=== PATIENT | male | born 1965 | race Caucasian/White ===

== ENCOUNTER 2025-01-10 12:08 | Inpatient (IN) | payer OTHER ==
[2025-01-10 13:00] LABS: Hematocrit 21.1 % (42.0-52.0); Hemoglobin 5.2 g/dL (14.0-18.0); Mean Corpuscular Hemoglobin 17.2 pg (27.0-31.0); Mean Corpuscular Volume 69.6 fL (78.0-98.0); Platelet Count 102 10x3/uL (130-400); Red Blood Cell (RBC) Count 3.03 mill/uL (4.70-6.10); White Blood Cell (WBC) Count 3.93 10x3/uL (4.8-10.8)
[2025-01-10 13:04] LABS: INR-International Normal Ratio 1.1; Prothrombin Time 14.5 sec (12.0-14.7)
[2025-01-10] MEDS ORDERED: Iopamidol-370 76% 500 ML MDV (1 ML CHARGE) ONE (13:09)
[2025-01-10 13:10] LABS: ALT (SGPT) 18 U/L (Less than 45); AST (SGOT) 30 U/L (11-34); Albumin 3.7 g/dL (3.1-4.5); Alkaline Phosphatase 121 U/L (40-110); Anion Gap 13 mmol/L (10-20); BUN (Urea Nitrogen) 14 mg/dL (8.4-25.7); Bilirubin, Total 1.4 mg/dL (0.3-1.2); Calc. Creatinine Clearance 0 mL/min (70-130); Calcium 8.9 mg/dL (7.8-10.44); Carbon Dioxide 22 mmol/L (23-31); Chloride 106 mmol/L (98-107); Globulin 3.2 g/dL (2.4-3.5); Glucose 199 mg/dL (80-115); Potassium 3.9 mmol/L (3.5-5.1); Sodium 137 mmol/L (136-145)
[2025-01-10 13:23] LABS: Anisocytosis SLIGHT = 6-15 cells HPF (0-5); Microcytosis SLIGHT = 6-15 cells HPF (0-5); Platelet Adequacy Comment Platelets Decreased; Smudge Cells 3.0 %
[2025-01-10] MEDS ORDERED: Pantoprazole 40 MG VIAL ONE (13:56)
[2025-01-10] MEDS ORDERED: Acetaminophen 325 MG TAB PO PRN (17:33)
[2025-01-10 18:53] VITALS: BMI 26.5
[2025-01-10] MEDS: Octreotide Acetate 1,250 MCG in Sodium Chloride 0.9% 250 ML 250 ML IVPB SCH (21:52)
[2025-01-10] MEDS: Pantoprazole 40 MG VIAL IVP SCH (22:02)
[2025-01-10] MEDS: Pantoprazole 80 MG, Admixture Fee 1 EACH in Sodium Chloride 0.9% 100 ML IVP SCH (22:03)
[2025-01-10] MEDS ORDERED: Ondansetron PF 4 MG/2 ML Vial IVP PRN (22:26)
[2025-01-10 22:46] LABS: Hemoglobin 5.6 g/dL (14.0-18.0)
[2025-01-11 04:41] LABS: #Basophils Less than 0.03 10x3/uL (0.0-0.2); #Eosinophils 0.16 10x3/uL (0.0-0.7); #Monocytes 0.51 10x3/uL (0.11-0.59); #Neutrophils 1.91 10x3/uL (1.40-6.50); %Basophils 0.6 % (0.0-1.0); %Eosinophils 4.8 % (0.0-10.0); %Lymphocytes 21.7 % (21.0-51.0); %Monocytes 15.4 % (0.0-10.0); %Neutrophils 57.5 % (42.0-75.0); Hematocrit 24.1 % (42.0-52.0); Hemoglobin 6.5 g/dL (14.0-18.0); Mean Corpuscular Hemoglobin 19.3 pg (27.0-31.0); Mean Corpuscular Volume 71.5 fL (78.0-98.0); Platelet Count 97 10x3/uL (130-400); Red Blood Cell (RBC) Count 3.37 mill/uL (4.70-6.10); White Blood Cell (WBC) Count 3.32 10x3/uL (4.8-10.8)
[2025-01-11 04:59] LABS: ALT (SGPT) 17 U/L (Less than 45); AST (SGOT) 34 U/L (11-34); Albumin 3.4 g/dL (3.1-4.5); Alkaline Phosphatase 113 U/L (40-110); Anion Gap 13 mmol/L (10-20); BUN (Urea Nitrogen) 10 mg/dL (8.4-25.7); Bilirubin, Total 3.6 mg/dL (0.3-1.2); Calc. Creatinine Clearance 96 mL/min (70-130); Calcium 8.3 mg/dL (7.8-10.44); Carbon Dioxide 23 mmol/L (23-31); Chloride 110 mmol/L (98-107); Globulin 2.9 g/dL (2.4-3.5); Glucose 115 mg/dL (80-115); Potassium 3.9 mmol/L (3.5-5.1); Sodium 142 mmol/L (136-145)
[2025-01-11 06:19] LABS: Hemoglobin 6.6 g/dL (14.0-18.0)
[2025-01-11] MEDS: cefTRIAXone\\ROCEPHIN 1 GM in Sodium Chloride 0.9% 100 ML IVPB SCH (06:48)
[2025-01-11 08:16] LABS: Iron 98 ug/dL (65-175); Iron Binding Capacity, Total 493 mcg/dL (261-462)
[2025-01-11] MEDS ORDERED: Pantoprazole 40 MG VIAL IVP SCH (09:00)
[2025-01-11] MEDS ORDERED: PROPOFOL 20 ML ONE (09:25)
[2025-01-11] MEDS ORDERED: SUCCINYLCHOLINE/SOD CL,ISO/PF 200 MG/10 ML SYRINGE FS ONE (10:13)
[2025-01-11] MEDS ORDERED: Lidocaine 2% PF 100 mg/5 ml Syringe ONE (10:13)
[2025-01-11 14:17] LABS: Hemoglobin 8.7 g/dL (14.0-18.0)
[2025-01-11] MEDS: GoLYTELY 4,000 ml Bottle PO SCH (22:02)
[2025-01-12] MEDS ORDERED: PROPOFOL 40 ML ONE (08:11)
[2025-01-12] MEDS ORDERED: PROPOFOL 20 ML ONE ×3 (08:52→09:30)
[2025-01-12] MEDS ORDERED: Ketorolac Tromethamine 30 MG (1 mL) VIAL ONE (10:00)
[2025-01-12 12:42] LABS: Hep B Core Total Index 0.10 S/CO (0-0.79); Hep C Index 0.10 S/CO (0-0.79)
[2025-01-12 13:10] LABS: Hep A IgM AB NONREACTIVE (NonReactive); Hep A IgM S/CO 0.23 S/CO (0-0.79); Hep B Core Total Ab NONREACTIVE (NonReactive); Hep C IgG Ab NONREACTIVE S/CO (NonReactive)
[2025-01-12 13:11] LABS: Hep B Core IgM Index 0.08 S/CO (0-0.79); Hep B Surf Ag NONREACTIVE S/CO (NonReactive)
[2025-01-12 13:13] LABS: HBSAB Concentration 8.78 mIU/mL
[2025-01-12 13:35] LABS: Ferritin 27.19 ng/mL (22-322)
[2025-01-12 15:37] VITALS: BP 117/55; TEMP 98
[2025-01-13] MEDS ORDERED: Pantoprazole 40 MG DR.TAB PO SCH (09:00)
[2025-01-13 11:46] LABS: ANA Symphony (Qualitative) Negative (Negative); ANA Symphony (Quantitative) 0.4 Ratio (< 0.7 Negative); EliA Vaculitis New Method **** NEW METHOD ****; Mitochondrial Ab 6.2 U/mL (<4 Negative); dsDNA IgG Antibody 1.4 IU/mL (<10 Negative)
[2025-01-15 13:12] LABS: Smooth Muscle Total ABS 5 Units (0-19)
[2025-01-15 16:13] LABS: Hep C PCR-Quant HCV Not Detected IU/mL (.)
== END 2025-01-12 17:39 | disposition home or self-care (01) | DRG 812 ==
LOC: ERS 12:08 → 2NO 17:37
PROVIDERS: ADMIT Family Medicine; ATTEND Hospitalist
PROC: 30233N1 Transfusion of Nonautologous Red Blood Cells into Peripheral Vein, Percutaneous Approach (ICD-10-PCS; 2025-01-10)
PROC: 0DJ08ZZ Inspection of Upper Intestinal Tract, Via Natural or Artificial Opening Endoscopic (ICD-10-PCS; principal; 2025-01-11)
PROC: 3E03329 Introduction of Other Anti-infective into Peripheral Vein, Percutaneous Approach (ICD-10-PCS; 2025-01-11)
PROC: 0DBQ8ZX Excision of Anus, Via Natural or Artificial Opening Endoscopic, Diagnostic (ICD-10-PCS; 2025-01-12)
PROC: 0DBL8ZX Excision of Transverse Colon, Via Natural or Artificial Opening Endoscopic, Diagnostic (ICD-10-PCS; 2025-01-12)
PROC: 0DBM8ZX Excision of Descending Colon, Via Natural or Artificial Opening Endoscopic, Diagnostic (ICD-10-PCS; 2025-01-12)
DX: D64.9 Anemia, unspecified (principal); K76.6 Portal hypertension; I85.10 Secondary esophageal varices without bleeding; Z98.890 Other specified postprocedural states; D61.818 Other pancytopenia; M19.90 Unspecified osteoarthritis, unspecified site; K74.60 Unspecified cirrhosis of liver; K25.9 Gastric ulcer, unspecified as acute or chronic, without hemorrhage or perforation; K31.819 Angiodysplasia of stomach and duodenum without bleeding
CPT/HCPCS: 36415; 36416; 36430; 74177; 80053; 82103; 82105; 82274; 82728; 83516; 83540; 83550; 85018; 85025; 85610; 86015; 86038; 86225; 86704; 86705; 86706; 86709; 86803; 86850; 86870; 86900; 86901; 86905; 86922; 87340; 87522; 88305; J0696; J1885; J2003; J2354; J2470; J2704; J7050; P9016; Q9967